=== PATIENT | female | born 1975 | race Caucasian/White ===

== ENCOUNTER 2020-06-09 08:11 | Outpatient (REF) | payer OTHER, SELFPAY ==
--- NOTE | 2020-06-09 08:16 | MM_ITS ---
EXAMINATION: MM SCREENING DIGITAL BREAST TOMOSYNTHESIS, BILATERAL CLINICAL INFORMATION: Screening. Asymptomatic. Family history breast cancer, sister age 43 and aunt age 77. The lifetime risk of based on the Tyrer-Cuzick Model is 32 %. COMPARISON: Mammography: 06/06/2019, 05/07/2018, 05/04/2017, 07/08/2015 TECHNIQUE: Digital breast tomosynthesis is performed in both the craniocaudal and mediolateral oblique views along with computer-aided detection (CAD). Synthesized 2D images are generated from the tomosynthesis. FINDINGS: The breasts are heterogeneously dense, which may obscure small masses (ACR BI-RADS breast composition Category c). Parenchymal pattern is similar to prior studies. There is no developing density or interval mass or architectural abnormality. There are scattered punctate calcifications in each breast. A few new calcifications are noted medial left breast 8 cm from nipple without grouping on the MLO view. Patient will be recalled in order to fully characterize. There are 2 biopsy clip markers again noted retroareolar left breast. The axilla and skin contours are unremarkable. MM/MM tomosynthesis screening BI IMPRESSION: 1. Left: Punctate calcifications medial left breast. No grouping appreciated on MLO view. 2. Right: No mammographic evidence of malignancy. ASSESSMENT: BI-RADS 0: Incomplete - Need Additional Imaging Evaluation RECOMMENDATION: 1. Additional views of the left breast (magnification CC, magnification ML-central and lower). 2. Radiology department staff will contact the patient for additional imaging. 3. The lifetime risk of breast cancer based on the Tyrer-Cuzick Model is 32%. Additional annual adjunct screening with breast MRI may be of benefit in women with a risk score of 20% or greater. This patient's information was entered into a reminder system with a target due date for their next mammogram.
== END 2020-06-09 08:12 | disposition home or self-care (01) ==
LOC: HO.MAMMO 08:11
PROVIDERS: PCP Internal Medicine; Visit Provider Internal Medicine
DX: Z12.31 Encounter for screening mammogram for malignant neoplasm of breast (principal)
CPT/HCPCS: 77063; 77067

== ENCOUNTER 2020-07-09 08:25 | Outpatient (REF) | payer OTHER, SELFPAY ==
--- NOTE | 2020-07-09 08:28 | MM_ITS ---
EXAMINATION: MM DIAGNOSTIC DIGITAL, LEFT CLINICAL INFORMATION: Left breast calcifications medially. COMPARISON: Mammography: 06/09/2020 and studies dating back to 04/08/2011. TECHNIQUE: Digital mammography performed in Spot compression craniocaudal and 90 degree mediolateral views. FINDINGS: The breasts are heterogeneously dense, which may obscure small masses (ACR BI-RADS breast composition Category c). The grouping of calcifications is difficult to see on craniocaudal view with multiple scattered calcifications being seen. On 90 degree mediolateral view, there are 2 groupings of calcifications approximately 8 cm from the nipple, both inferiorly. No branching forms identified. The calcifications are similar to other calcifications seen within the breast. Recommend 6 month follow up magnification views of the left breast. Results are provided to the patient at time of visit by the technologist. MM/MM added views LT IMPRESSION: Probably benign calcifications of the left breast. ASSESSMENT: BI-RADS 3: Probably Benign. RECOMMENDATION: Diagnostic mammography in 6 months. This patient's information was entered into a reminder system with a target due date for their next mammogram.
== END 2020-07-09 08:26 | disposition home or self-care (01) ==
LOC: HO.MAMMO 08:25
PROVIDERS: PCP Internal Medicine; Visit Provider Internal Medicine
DX: R92.1 Mammographic calcification found on diagnostic imaging of breast (principal)
CPT/HCPCS: 77065

== ENCOUNTER 2021-01-04 10:19 | Outpatient (REF) | payer OTHER, SELFPAY ==
--- NOTE | ~2021-01-04 | MM_ITS ---
EXAMINATION: MM DIAGNOSTIC DIGITAL BREAST TOMOSYNTHESIS, LEFT CLINICAL INFORMATION: Short interval six-month follow-up probable benign calcifications lower inner quadrant left breast. Family history breast cancer, sister age 43; paternal aunt age 77. The lifetime risk of breast cancer based on the Tyrer-Cuzick Model is 32%. Benign left MR guided biopsy 01/08/2018 (benign breast tissue with sclerosing adenosis, microcalcifications, stromal fibrosis, macrocysts, columnar cell change, and apocrine metaplasia). Benign left MR guided biopsy 08/05/2006 (benign breast tissue with dense fibrous stroma). COMPARISON: Mammography: 07/09/2020, 06/09/2020 (BI-RADS 0), 06/06/2019 TECHNIQUE: Digital breast tomosynthesis is performed in both the craniocaudal and mediolateral oblique views along with computer-aided detection (CAD). Synthesized 2D images are generated from the tomosynthesis. FINDINGS: The breasts are heterogeneously dense, which may obscure small masses (ACR BI-RADS breast composition Category c). Parenchymal pattern is similar to prior exams. There is no developing density or interval mass or architectural abnormality. There are scattered calcifications anterior lower inner left breast, some show layering on the ML view. There are no increasing calcifications or pleomorphic types or ductal distribution from prior diagnostic exam. Left breast calcifications will be reassessed again in 6 months at time of annual bilateral mammography. Results are provided to the patient at time of visit by the technologist. MM/MM tomosynthesis diagnostic BI IMPRESSION: There are no significant changes from prior study. ASSESSMENT: BI-RADS 3: Probably Benign RECOMMENDATION: 1. Diagnostic mammography at time of annual bilateral exam, due in 6 months. 2. The lifetime risk of breast cancer based on the Tyrer-Cuzick Model is 32%. Additional annual adjunct screening with breast MRI may be of benefit in women with a risk score of 20% or greater. This patient's information was entered into a reminder system with a target due date for their next mammogram.
== END 2021-01-04 10:20 | disposition home or self-care (01) ==
LOC: HO.MAMMO 10:19
PROVIDERS: Visit Provider Internal Medicine
DX: R92.1 Mammographic calcification found on diagnostic imaging of breast (principal)
CPT/HCPCS: 77062; 77066

== ENCOUNTER 2021-02-26 06:37 | Outpatient (REF) | payer OTHER, SELFPAY ==
[2021-02-26 11:31] LABS: MANUAL DIFF FLAG NO
[2021-02-26 11:40] LABS: Basophils Percent Auto 0.5 % (0-2); Eosinophils Absolute Auto 0.1 X10*3/uL (0.0-0.4); Eosinophils Percent Auto 0.6 % (0-4); Hematocrit 42.2 % (37-47); Hemoglobin 14.1 g/dl (12.0-16.0); Imm Gran Abs Auto 0.02 X10*3/uL (0.00-0.03); Imm Gran Pct Auto 0.3 % (0.0-0.4); Lymphocytes Absolute Auto 2.1 X10*3/uL (1.2-4.9); Lymphocytes Percent Auto 27.1 % (20-40); Mean Corpuscular HGB Conc 33.4 g/dl (31.0-35.0); Mean Corpuscular Hemoglobin 33.8 pg (27.0-33.0); Mean Corpuscular Volume 101.2 fL (80-98); Mean Platelet Volume 10.2 fL (9.4-12.3); Monocytes Absolute Auto 0.7 X10*3/uL (0.1-1.2); Neutrophils Percent Auto 62.5 % (45-73); Platelet Count 259 X10*3/uL (160-400); Red Blood Count 4.17 X10*6/uL (4.20-5.50); Red Cell Distribution Width 13.5 % (11.0-16.0); White Blood Count 7.9 X10*3/uL (4.8-10.8)
[2021-02-26 11:51] LABS: Estimated Average Glucose 97 mg/dL
[2021-02-26 12:02] LABS: Alanine Aminotransferase 12 U/L (0-31); Albumin Level 4.2 g/dL (3.5-5.0); Alkaline Phosphatase 57 U/L (39-117); Anion Gap 14 (12-20); Aspartate Amino Transferase 14 U/L (5-31); Bilirubin Total 0.9 mg/dL (0.0-1.0); Blood Urea Nitrogen 10 mg/dL (9-16); Calcium 9.1 mg/dL (8.4-10.2); Carbon Dioxide 20 mmol/L (22-29); Chloride 106 mmol/L (96-108); Cholesterol 272 mg/dL; Estimated Glomerular Filt Rate > 60; Glucose Random 96 mg/dL (60-115); HDL Cholesterol 62 mg/dL; LDL Cholesterol Calculated 171 mg/dl; Sodium 136 mmol/L (135-145); Triglycerides 195 mg/dL
[2021-02-26 12:13] LABS: Free T4 (Free Thyroxine) 0.92 ng/dL (0.71-1.85); Thyroid Stimulating Hormone 3.07 uIU/mL (0.32-4.0); Vitamin D 25-OH Total 23.1 ng/mL (>30)
[2021-02-27 14:53] LABS: Folate > 20.0 ng/mL (> or = 4.0); Vitamin B12 762 pg/mL (200-900)
== END 2021-02-26 06:38 | disposition home or self-care (01) ==
LOC: HO.HMGCLDS 06:37
PROVIDERS: PCP Internal Medicine; Visit Provider Internal Medicine
DX: E78.00 Pure hypercholesterolemia, unspecified (principal); R73.02 Impaired glucose tolerance (oral)
CPT/HCPCS: 36415; 80053; 80061; 82306; 82607; 82746; 83036; 84439; 84443; 85025

== ENCOUNTER → 2021-03-10 09:42 | Outpatient (BNVA) | payer OTHER, SELFPAY | PROVIDERS: Visit Provider Advanced Practice Midwife ==

== ENCOUNTER → 2021-04-01 08:21 | Outpatient (BNVA) | payer OTHER, SELFPAY | PROVIDERS: PCP Internal Medicine; Visit Provider Obstetrics & Gynecology ==

== ENCOUNTER → 2021-04-22 11:07 | Outpatient (BNVA) | payer OTHER, SELFPAY | PROVIDERS: PCP Internal Medicine; Referring Provider Internal Medicine; Visit Provider Surgery ==

== ENCOUNTER 2021-04-28 13:21 | Outpatient (REF) | payer OTHER, SELFPAY ==
--- NOTE | ~2021-04-28 | MR_ITS ---
EXAMINATION: MR BREAST WITHOUT AND WITH CONTRAST, BILATERAL CLINICAL INFORMATION: High-risk screening. COMPARISON: MRI 12/21/2017, 04/20/2017 TECHNIQUE: Imaging was performed with a dedicated breast coil. Prior to the administration of contrast, bilateral axial T1 and bilateral axial T2 weighted sequences were obtained. After the uneventful administration of?6.5 mL of Gadavist, dynamic contrast-enhanced VIBRANT series through the breasts in the axial plane were performed. Subtracted images were performed and reviewed. A delayed sagittal sequence through both breasts was acquired. Additionally, CAD post-processing, including maximum intensity projections, 3-D reconstructions and kinetic analysis, were performed an independent workstation and reviewed by the interpreting radiologist is a portion of this exam. FINDINGS: There is mild to moderate background parenchymal enhancement. LEFT BREAST: There is a new area of linear nonmasslike enhancement in the 8:00 position of the left breast which measures 0.8 cm anterior to posterior (image 91, series 100).. There is a probably benign grouping of calcifications anterior to this area on review of the recent mammogram. No definite mammographic correlate. No other suspicious nonmasslike or masslike enhancement. Review of the T2 weighted images demonstrates mild fibrocystic changes without dilated ducts. Review of kinetic images reveals no additional findings. RIGHT BREAST: No suspicious masslike or non-masslike enhancement. No abnormal skin thickening or nipple retraction. No abnormal architectural distortion. Review of the T2 weighted images demonstrates mild fibrocystic changes without dilated ducts. Review of kinetic images reveals no additional findings. There is no suspicious internal mammary chain or axillary adenopathy. Limited views of the chest and abdomen are unremarkable. MR/MR breast BI wo/w con IMPRESSION: Indeterminant nonmasslike enhancement, left breast, 8:00. No MR specific evidence of right breast malignancy. ASSESSMENT: LEFT BREAST: BI-RADS 4 - Suspicious abnormality - Biopsy should be considered. RIGHT BREAST: BI-RADS 1-Negative RECOMMENDATIONS: MRI guided biopsy, left breast, 8:00.
== END 2021-04-28 13:22 | disposition home or self-care (01) ==
LOC: HO.MRI 13:21
PROVIDERS: PCP Internal Medicine; Visit Provider Obstetrics & Gynecology
DX: Z91.89 Other specified personal risk factors, not elsewhere classified (principal)
CPT/HCPCS: 77049; A9585

== ENCOUNTER → 2021-05-03 10:26 | Outpatient (BNVA) | payer OTHER, SELFPAY | PROVIDERS: Visit Provider Obstetrics & Gynecology ==

== ENCOUNTER 2021-05-17 07:25 | Outpatient (REF) | payer OTHER, SELFPAY ==
--- NOTE | ~2021-05-17 | MM_ITS ---
EXAMINATION: MR GUIDED VACUUM-ASSISTED CORE BIOPSY BREAST, LEFT MM DIGITAL MAMMOGRAPHY POST BIOPSY, LEFT CLINICAL INFORMATION: Linear non-mass enhancement 8:00 posterior left breast, 0.8 cm length. Tissue sampling recommended. Prior history benign left breast stereotactic biopsy anterior breast 08/05/2016 and 01/08/2018. COMPARISON: Mammography 04/28/2021, digital breast tomosynthesis 01/04/2021. TECHNIQUE/PROCEDURE: Informed consent was obtained from the patient after discussion of the benefits, risks, and alternatives to biopsy today. Patient appeared to understand. Gave opportunity for questions. Patient signed consent form. Biopsy is performed under MRI guidance using breast surface coil. Imaging is performed without and with use of 6.5 mL Gadavist gadolinium contrast. Yobongo introducer localization system is used with grid. LESION: Short non mass enhancement posterior medial left breast. LOCAL ANESTHESIA: 8 mL 1% lidocaine; 10 mL 1% lidocaine with epinephrine. NEEDLE: Semantify 9-gauge vacuum assisted core biopsy device. APPROACH: Lateral medial. Lesion location and MR grid geometry did not allow for medial approach. CORES: 12. CLIP: TriMark spool/barbell shape. POSTPROCEDURE UNILATERAL DIGITAL MAMMOGRAM: Mammography is performed using digital mammography in CC and ML views. The breasts are heterogeneously dense, which may obscure small masses (ACR BI-RADS breast composition Category c). The clip marker is in position. There may be some lateral accordion effect from the biopsy site. No gross hematoma. The patient tolerated the procedure well. No immediate complications. Home instructions reviewed with the patient. Final pathology results are pending. MM/MM diagnostic mammo unilat LT IMPRESSION: 1. Status post MRI guided vacuum-assisted core biopsy left breast. 2. Final pathology results pending. An addendum report will be issued.
== END 2021-05-17 07:26 | disposition home or self-care (01) ==
LOC: HO.MRI 07:25
PROVIDERS: Visit Provider Surgery
DX: R92.8 Other abnormal and inconclusive findings on diagnostic imaging of breast (principal)
CPT/HCPCS: 19085; 77065; 88305; A4648; A9585

== ENCOUNTER 2021-07-07 12:49 | Outpatient (REF) | payer OTHER, SELFPAY ==
--- NOTE | ~2021-07-07 | MM_ITS ---
EXAMINATION: MM DIAGNOSTIC DIGITAL BREAST TOMOSYNTHESIS, BILATERAL CLINICAL INFORMATION: Due for yearly. Probable benign calcifications lower inner left breast. Family history breast cancer, sister age 43. Prior history benign left breast biopsy x3, most recent MR guided 05/17/2021 (benign breast tissue with patchy apocrine metaplasia and cystic change; a few microcalcifications; prominent adipose tissue). The lifetime risk of breast cancer based on the Tyrer-Cuzick Model is 27%. COMPARISON: Mammography: 05/17/2021, 01/04/2021, 07/09/2020, 06/09/2020 (BI-RADS 0), 06/06/2019, 05/07/2018 TECHNIQUE: Digital breast tomosynthesis is performed in both the craniocaudal and mediolateral oblique views along with computer-aided detection (CAD). Synthesized 2D images are generated from the tomosynthesis. Additional magnification left CC and left magnification LM views are provided. FINDINGS: The breasts are heterogeneously dense, which may obscure small masses (ACR BI-RADS breast composition Category c). Parenchymal pattern is similar to prior studies. There is no interval developing density, significant mass, architectural abnormality, or abnormal calcifications. Scattered punctate calcifications are again noted in each breast, some are layering on the MLO view. There are 3 biopsy clip markers left breast, most recent from MR biopsy lower inner quadrant. The most recent biopsy is close to the area of calcifications for follow-up.. The calcifications appear decreased. No interval suspicious change. Left breast will be reassessed with magnification views at next bilateral annual mammography, due in 12 months. Results are provided to the patient at time of visit by the technologist. MM/MM tomosynthesis diagnostic BI IMPRESSION: 1. No mammographic evidence of malignancy. 2. Left breast calcifications for follow-up appear decreased, likely related to the recent benign MR biopsy. No suspicious changes. ASSESSMENT: BI-RADS 3: Probably Benign RECOMMENDATION: Diagnostic mammography at time of next annual exam to include magnification views left breast, due in 12 months. This patient's information was entered into a reminder system with a target due date for their next mammogram.
== END 2021-07-07 12:50 | disposition home or self-care (01) ==
LOC: HO.MAMMO 12:49
PROVIDERS: Visit Provider Internal Medicine
DX: R92.1 Mammographic calcification found on diagnostic imaging of breast (principal)
CPT/HCPCS: 77062; 77066

== ENCOUNTER 2021-08-04 13:40 | Outpatient (REF) | payer OTHER, SELFPAY ==
--- NOTE | ~2021-08-04 | XR_ITS ---
EXAMINATION: XR CHEST CLINICAL INFORMATION: Acute bronchitis. COMPARISON: Previous chest x-ray September 2013. TECHNIQUE: 2 views of the chest were obtained. FINDINGS: No significant abnormality is noted involving the heart, lungs, mediastinum, bony thorax or soft tissues. XR/XR chest 2V IMPRESSION: Unremarkable examination.
== END 2021-08-04 13:41 | disposition home or self-care (01) ==
LOC: HO.HMGCX 13:40
PROVIDERS: Visit Provider Physician Assistant
DX: J20.9 Acute bronchitis, unspecified (principal)
CPT/HCPCS: 71046

== ENCOUNTER → 2022-04-18 09:09 | Outpatient (REF) | payer OTHER, SELFPAY ==
--- NOTE | 2022-04-18 09:16 | ECG_ITS ---
Test Reason : syncope and collapse Blood Pressure : / mmHG Vent. Rate : 055 BPM Atrial Rate : 055 BPM P-R Int : 136 ms QRS Dur : 086 ms QT Int : 432 ms P-R-T Axes : 069 075 062 degrees QTc Int : 413 ms Sinus bradycardia Otherwise normal ECG No previous ECGs available Referred By: Nita Reed Electronically Signed By:ABHINAV CR
[2022-04-18 09:39] LABS: MANUAL DIFF FLAG NO
[2022-04-18 10:20] LABS: Appearance Urine Clear; Color Urine Yellow; Glucose Urine UA Negative (Negative); Leukocyte Esterase Urine Small (1+) (Negative); Nitrite Urine Negative (Negative); PH 6.5 (5.0-9.0); Specific Gravity - Urine 1.015 (1.005-1.025); UMIC TRIGGER UA YES; Urine Blood Negative (Negative); Urine Ketones Negative (Negative); Urine Protein Negative (Neg-Trace)
[2022-04-18 10:22] LABS: Basophils Percent Auto 0.2 % (0-2); Eosinophils Absolute Auto 0.1 X10*3/uL (0.0-0.4); Eosinophils Percent Auto 0.7 % (0-4); Hematocrit 40.1 % (37.0-47.0); Hemoglobin 13.6 g/dl (12.0-16.0); Imm Gran Abs Auto 0.02 X10*3/uL (0.00-0.03); Imm Gran Pct Auto 0.2 % (0.0-0.4); Lymphocytes Percent Auto 24.2 % (20-40); Mean Corpuscular HGB Conc 33.9 g/dl (31.0-35.0); Mean Corpuscular Volume 100.3 fL (80.0-98.0); Mean Platelet Volume 9.7 fL (9.4-12.3); Monocytes Absolute Auto 0.5 X10*3/uL (0.1-1.2); Monocytes Percent Auto 6.5 % (2-11); Neutrophils Absolute Auto 5.5 x10*3/uL (2.0-8.3); Neutrophils Percent Auto 68.2 % (45-73); Platelet Count 269 X10*3/uL (160-400); Red Cell Distribution Width 12.2 % (11.0-16.0); White Blood Count 8.1 X10*3/uL (4.8-10.8)
[2022-04-18 10:34] LABS: Estimated Average Glucose 97 mg/dL
[2022-04-18 10:36] LABS: Bacteria Urine 3+ (None Seen); Hyaline Casts Urine 0-2 /LPF (0-2); WBC Urine 0-5 /HPF (0-5)
[2022-04-18 10:50] LABS: Alanine Aminotransferase 13 U/L (0-31); Albumin Level 4.3 g/dL (3.5-5.0); Alkaline Phosphatase 59 U/L (39-117); Anion Gap 17 (12-20); Aspartate Amino Transferase 17 U/L (5-31); Bilirubin Total 0.5 mg/dL (0.0-1.0); Blood Urea Nitrogen 9 mg/dL (9-16); Calcium 9.4 mg/dL (8.4-10.2); Carbon Dioxide 22 mmol/L (22-29); Chloride 102 mmol/L (96-108); Cholesterol 269 mg/dL; Estimated Glomerular Filt Rate > 60; Glucose Random 96 mg/dL (60-115); HDL Cholesterol 59 mg/dL; LDL Cholesterol Calculated 159 mg/dl; Potassium 4.5 mmol/L (3.3-5.1); Sodium 136 mmol/L (135-145); Total Protein 7.3 g/dL (6.5-8.0); Triglycerides 256 mg/dL
[2022-04-18 10:52] LABS: D Dimer High Sensitivity < 150 NG/ML
[2022-04-18 11:02] LABS: Erythrocyte Sedimentation Rate 8 MM/HR (0-20)
[2022-04-18 11:15] LABS: Free T4 (Free Thyroxine) 0.97 ng/dL (0.71-1.85); Thyroid Stimulating Hormone 1.98 uIU/mL (0.32-4.0)
[2022-04-18 11:38] LABS: Folate > 20.0 ng/mL (> or = 4.0); Vitamin B12 801 pg/mL (200-900)
== END ==
LOC: HO.CARD 09:09
PROVIDERS: PCP Internal Medicine; Visit Provider Internal Medicine
DX: R55 Syncope and collapse (principal); E78.00 Pure hypercholesterolemia, unspecified; R73.02 Impaired glucose tolerance (oral)
CPT/HCPCS: 36415; 80053; 80061; 81001; 82607; 82746; 83036; 84439; 84443; 85025; 85379; 85652; 93005

== ENCOUNTER 2022-06-28 14:00 | Outpatient (REF) | payer OTHER, SELFPAY ==
[2022-06-28 16:30] LABS: Influenza A PCR NEGATIVE (Negative); Influenza B PCR NEGATIVE (Negative); Resp Syncy Virus RNA Qual PCR NEGATIVE (Negative); SARS COV2 PCR INHOUSE NEGATIVE (Negative)
== END 2022-06-28 14:01 | disposition home or self-care (01) ==
LOC: HO.LNP 14:00
PROVIDERS: Visit Provider Physician Assistant
DX: Z20.822 Contact with and (suspected) exposure to COVID-19 (principal); B34.9 Viral infection, unspecified
CPT/HCPCS: 0241U

== ENCOUNTER 2022-07-08 12:12 | Outpatient (REF) | payer OTHER, SELFPAY | END 2022-07-08 12:13 | disposition home or self-care (01) | LOC: HO.MAMMO 12:12 | PROVIDERS: PCP Internal Medicine; Visit Provider Internal Medicine | DX: R92.1 Mammographic calcification found on diagnostic imaging of breast (principal) | CPT/HCPCS: 77062; 77066 ==

== ENCOUNTER 2022-07-20 13:08 | Outpatient (REF) | payer OTHER, SELFPAY ==
[2022-07-23 17:53] LABS: HPV 16 RNA NOT DETECTED (NOT DETECTED); HPV mRNA E6/E7 rflx Detected (Not Detected)
== END 2022-07-20 13:09 | disposition home or self-care (01) ==
LOC: HO.LNP 13:08
PROVIDERS: PCP Internal Medicine; Visit Provider Advanced Practice Midwife
DX: Z01.419 Encounter for gynecological examination (general) (routine) without abnormal findings (principal); N87.0 Mild cervical dysplasia; Z97.5 Presence of (intrauterine) contraceptive device; Z12.39 Encounter for other screening for malignant neoplasm of breast; Z79.899 Other long term (current) drug therapy
CPT/HCPCS: 87624; 87625; 88142

== ENCOUNTER 2022-08-19 09:45 | Outpatient (REF) | payer OTHER, SELFPAY ==
--- NOTE | ~2022-08-19 | XR_ITS ---
EXAMINATION: XR CERVICAL SPINE CLINICAL INFORMATION: Neuralgia and neuritis. COMPARISON: None TECHNIQUE: 3 views of the cervical spine were obtained. FINDINGS: There are no prevertebral soft tissue or bony abnormalities demonstrated. No compression fractures or subluxations are identified. Alignment is maintained at the atlanto-axial articulation. There is mild to moderate focal degenerative disc disease at C5-C6 with loss of intervertebral disc height and endplate and uncovertebral osteophytes. There is reversal of the normal cervical lordosis. The prevertebral soft tissues are normal. XR/XR cervical spine 2V IMPRESSION: Mild to moderate focal degenerative disc disease at C5-C6. Reversal of the normal cervical lordosis. No acute osseous findings.
== END 2022-08-19 09:46 | disposition home or self-care (01) ==
LOC: HO.XRAY 09:45
PROVIDERS: PCP Internal Medicine; Visit Provider Internal Medicine
DX: M79.2 Neuralgia and neuritis, unspecified (principal)
CPT/HCPCS: 72040

== ENCOUNTER 2022-11-09 12:53 | Outpatient (REF) | payer OTHER, SELFPAY ==
--- NOTE | 2022-11-09 08:45 | EMG_ITS ---
Please see scanned EMG / Nerve Conduction Report. MTDD
== END 2022-11-09 12:54 | disposition home or self-care (01) ==
LOC: HO.NEURO 12:53
PROVIDERS: PCP Internal Medicine; Visit Provider Internal Medicine
DX: R20.0 Anesthesia of skin (principal)
CPT/HCPCS: 95885; 95910

== ENCOUNTER 2022-12-15 09:23 | Outpatient (REF) | payer OTHER, SELFPAY ==
[2022-12-15 11:11] LABS: Appearance Urine Cloudy; Color Urine Yellow; Glucose Urine UA Negative (Negative); Leukocyte Esterase Urine Moderate (2+) (Negative); Nitrite Urine Negative (Negative); PH 6.5 (5.0-9.0); UMIC TRIGGER UA YES; Urine Blood Negative (Negative); Urine Ketones Negative (Negative); Urine Protein 30 (1+) mg/dL (Neg-Trace)
[2022-12-15 11:29] LABS: Bacteria Urine 4+ (None Seen); Hyaline Casts Urine 0-2 /LPF (0-2); WBC Urine >50 /HPF (0-5)
== END 2022-12-15 09:24 | disposition home or self-care (01) ==
LOC: HO.LAB 09:23
PROVIDERS: PCP Internal Medicine; Visit Provider Internal Medicine
DX: R30.0 Dysuria (principal)
CPT/HCPCS: 81001

== ENCOUNTER 2023-01-05 09:13 | Outpatient (REF) | payer OTHER, SELFPAY ==
--- NOTE | ~2023-01-05 | MM_ITS ---
EXAMINATION: MM DIAGNOSTIC DIGITAL MAMMOGRAPHY, RIGHT CLINICAL INFORMATION: Short interval six-month follow-up probable benign calcifications posterior central inner right breast initially noted at diagnostic mammography 07/08/2022. TC score 26%. COMPARISON: Multiple prior mammography exams including most recent: 07/08/2022 (BI-RADS 3 for right breast) TECHNIQUE: Digital mammography is performed in craniocaudal and mediolateral oblique views along with computer-aided detection (CAD). Additional views are obtained: Right CC, magnification right CC x3, magnification right ML x2. FINDINGS: The breasts are heterogeneously dense, which may obscure small masses (ACR BI-RADS breast composition Category c). Parenchymal pattern is similar to prior exams and there is no developing density or interval mass or architectural abnormality. There are scattered calcifications again seen in the right breast. The calcification group for follow-up right posterior central inner are stable from prior diagnostic mammography. The calcifications will be reassessed again in 6 months at time of annual bilateral exam. Results are provided to the patient at time of visit by the technologist. MM/MM tomosynthesis diagnostic RT IMPRESSION: -Right breast calcifications for follow-up are similar to prior diagnostic exam. ASSESSMENT: BI-RADS 3: Probably Benign RECOMMENDATION: Diagnostic mammography at time of annual bilateral mammography, due in 6 months. This patient's information was entered into a reminder system with a target due date for their next mammogram.
== END 2023-01-05 09:14 | disposition home or self-care (01) ==
LOC: HO.MAMMO 09:13
PROVIDERS: PCP Internal Medicine; Visit Provider Internal Medicine
DX: R92.1 Mammographic calcification found on diagnostic imaging of breast (principal)
CPT/HCPCS: 77061; 77062; 77065

== ENCOUNTER 2023-07-12 10:49 | Outpatient (REF) | payer OTHER, SELFPAY ==
--- NOTE | ~2023-07-12 | MM_ITS ---
EXAMINATION: MM DIAGNOSTIC DIGITAL BREAST TOMOSYNTHESIS, BILATERAL CLINICAL INFORMATION: 6 month follow-up right breast calcifications slightly upper slightly medial right breast, middle one third. 2 abutting groups. BI-RADS 0 07/07/2021 (stable over one year). Patient also has history of 3 benign left MR guided breast biopsies. TC score 26%. COMPARISON: Multiple prior mammography exams including most recent: 01/05/2023, 07/08/2022 (BI-RADS 3 for right breast), TECHNIQUE: Digital breast tomosynthesis is performed in both the craniocaudal and mediolateral oblique views along with computer-aided detection (CAD). Synthesized 2D images are generated from the tomosynthesis. In addition, 2-D spot magnification right ML and right CC views were also performed. Also, 2 extra bilateral 3-D MLO views were provided for visualization of the inframammary folds. A full-field right ML view was also obtained. FINDINGS: The breasts are heterogeneously dense, which may obscure small masses (ACR BI-RADS breast composition Category c). Spot magnification views of the right breast slightly upper slightly inner calcifications, 2 distinct groups, middle one third, demonstrate no significant change in number, shape, or overall appearance of the 2 abutting groups. These is been stable over one year and are probably benign. Six-month interval follow-up right breast magnification views recommended to ensure stability. There are 3 benign post MR biopsy markers in the left breast. There are no suspicious masses, developing suspicious grouped calcifications, or areas of architectural distortion in either breast. The heterogeneously dense and somewhat nodular parenchymal pattern is stable from prior exams. There are no skin or axillary changes. MM/MM tomosynthesis diagnostic BI IMPRESSION: 2 discrete groups of immediately abutting calcifications in the right breast slightly upper slightly inner middle one third are completely unchanged and have remained stable over one year. Six-month interval follow-up standard magnification views right breast recommended to ensure 1.5 years of stability. There are no new suspicious findings in the right breast. There are no suspicious findings in the left breast. ASSESSMENT: BI-RADS BI-RADS 3 - Probably benign finding(s) - 6 month follow-up suggested RECOMMENDATION: 6 Month F/U Results were provided to the patient at time of visit by the technologist. This patient's information was entered into a reminder system with a target due date for their next mammogram.
== END 2023-07-12 10:50 | disposition home or self-care (01) ==
LOC: HO.MAMMO 10:49
PROVIDERS: PCP Internal Medicine; Visit Provider Internal Medicine
DX: R92.1 Mammographic calcification found on diagnostic imaging of breast (principal)
CPT/HCPCS: 77062; 77066

== ENCOUNTER → 2023-07-12 11:00 | Outpatient (BNV) | payer OTHER, SELFPAY | PROVIDERS: PCP Internal Medicine; Visit Provider Radiology Diagnostic Radiology | DX: R92.1 Mammographic calcification found on diagnostic imaging of breast (principal) | CPT/HCPCS: 77062; 77066 ==

== ENCOUNTER 2023-08-22 09:17 | Outpatient (REF) | payer OTHER, SELFPAY ==
[2023-08-28 20:09] LABS: HPV mRNA E6/E7 rflx Not Detected (Not Detected)
== END 2023-08-22 09:18 | disposition home or self-care (01) ==
LOC: HO.LNP 09:17
PROVIDERS: PCP Internal Medicine; Visit Provider Obstetrics & Gynecology
DX: Z01.419 Encounter for gynecological examination (general) (routine) without abnormal findings (principal); Z11.51 Encounter for screening for human papillomavirus (HPV); N95.0 Postmenopausal bleeding
CPT/HCPCS: 87624; 88142

== ENCOUNTER 2023-08-22 09:17 | Outpatient (AMB) | payer OTHER, SELFPAY ==
--- NOTE | 2023-08-22 09:29 | A.OFFVIS_ITS ---
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 The patient had amenorrhea for 6 months followed by 1 episode of bleeding associated with hot flashes Last Pap/HPV was negative/HPV positive in 11/06 Last Mammogram was BI-RADS 3 in 07/08, the recommendation was to repeat in 6 months The patient had Cologuard was negative and the recommendation was for her to repeat in 3 years [facility] Medical History Well woman exam with routine gynecological exam Breast cancer screening Colon cancer screening Annual physical exam Acute bronchitis At high risk for breast cancer Well woman exam Arm numbness left Shingles Rash and nonspecific skin eruption Atypical squamous cells cannot exclude high grade squamous intraepithelial lesion on cytologic smear of cervix (ASC-H) Tobacco abuse Insomnia Hypercholesterolemia Migraine GERD (gastroesophageal reflux disease) Surgical History ELIF I (cervical intraepithelial neoplasia I) History of breast biopsy Family History Father Heart disease Bone cancer Diabetes Esophageal cancer Mother No problems noted. Maternal Grandmother Colon cancer Paternal Aunt Breast cancer, Onset Age: 75 Sister Breast cancer, Onset Age: 42 Social History Housing: House Alcohol intake: current Alcohol intake frequency: a few times a month Alcohol type: beer, wine and hard liquor Patient Tobacco Use Status: Current everyday Tobacco user Tobacco use type: Cigarette Cigarettes Per Day: 5 Years Smoked: started 17 years old e-Cigarette/Vaping Use: Never Used Second Hand Smoke Exposure: No service: No Current occupational status: employed Cognitive needs: No Hearing needs: No Vision needs: No Female Reproductive History Menstrual Age of Menarche: 13 Duration of menses: 3-5 days Date of last menstrual period: 06/17/23 control method: copper IUCD Total pregnancies: 1 Ab induced: 1 Date of last pap smear: 07/20/22 (+HPV) History of abnormal pap smear: Yes Date of Mammogram: 07/12/23 Review of Systems Const All systems reviewed & are unremarkable except as noted in HPI and below Card Reports as per HPI Resp Reports as per HPI GI Reports as per HPI and Reports no additional complaints Reports as per HPI Physical Exam Vital Signs: Last Vital Signs BP 124/80 08/22/23 09:31 BMI result Body Mass Index 24.4 Const General: cooperative, healthy appearing and comfortable Chest Chest palpation & inspection: normal inspection of the chest and normal palpation of entire chest wall Breast/axilla inspection: normal inspection of the breasts and normal inspection of the axillae Breast/axilla palpation: normal palpation of the breasts, normal palpation of the axillae and no axillary lymphadenopathy Resp Effort & Inspection: normal respiratory effort Auscultation: clear to auscultation bilaterally Percussion: percussion normal Cardio Palpation: normal PMI Rate: regular rate Rhythm: regular rhythm Heart sounds: no murmurs and no rubs Peripheral pulses: Peripheral pulses 2+ throughout GI Inspection: Yes normal to inspection Palpation (GI): Soft to palpation, nontender, no guarding, not rigid and No hepatosplenomegaly present Percussion: Yes normal to percussion Auscultation: normal bowel sounds Rectal Exam - Female: deferred General: Yes bladder normal to palpation External Female Exam: No lesion Speculum Exam - Vagina: normal appearance of the vagina, normal palpation, normal vaginal discharge and not erythematous Speculum Exam - Cervix: normal appearance of the cervix and normal palpation Bimanual exam- vagina & uterus: normal bimanual exam, normal palpation, uterine size normal, bladder normal to palpation, consistency normal and normal palpation Bimanual Exam- Adnexa, other: normal adnexae, no masses and no tenderness Assessment & Plan Assessment & Plan (1) Well woman exam: Comment: Pap negative/HPV positive in 11/06 Code(s): Z01.419 - Encounter for gynecological examination (general) (routine) without abnormal findings Plan: Cotesting done. Instructions given to patient to schedule next Mammogram in 01/06. Counseled the patient about the recommended dietary allowance of 1000 mg of Calcium & 600 IU of vitamin D. The patient was instructed to perform monthly self-breast exams and to schedule an annual exam in a year; All questions answered and the patient verbalized understanding. Instructed the patient to schedule annual exam in a year (2) Postmenopausal bleeding: Code(s): N95.0 - Postmenopausal bleeding Plan: Discussed with the patient the differential diagnosis of post menopausal bleeding with normal pelvic exam including but not limited to, endometrial hyperplasia, cancer, polyps and other causes; co testing done, recommended ultrasound to measure the endometrial stripe; discussed with the patient that if the endometrial thickness is 4 mm or less the negative predictive value of endometrial pathology is 99%, otherwise If endometrial thickness is more than 4 mm will proceed with endometrial sampling versus hysteroscopy D&C polypectomy depending on the ultrasound findings. Instructed the patient to schedule an ultrasound follow-up appointment in 2 weeks. All questions answered, the patient verbalized understanding and agreed with the plan. Orders: Orders US pelvic and transvaginal Today N95.0 - Postmenopausal bleeding Coding Level of Care Code Est Pt Prev Care 40-64y(25296) Diagnoses Well woman exam Z01.419 Postmenopausal bleeding N95.0
[2023-08-22 09:31] VITALS: BP 124/80; BMI 24.4
== END 2023-08-22 09:51 | disposition home or self-care (01) ==
PROVIDERS: PCP Internal Medicine; Visit Provider Obstetrics & Gynecology
DX: Z01.419 Encounter for gynecological examination (general) (routine) without abnormal findings (principal); N95.0 Postmenopausal bleeding
CPT/HCPCS: 99396

== ENCOUNTER 2023-08-29 12:36 | Outpatient (REF) | payer OTHER, SELFPAY ==
--- NOTE | ~2023-08-29 | US_ITS ---
EXAMINATION: US PELVIS CLINICAL INFORMATION: Postmenopausal bleeding. Last menstrual period June 17, 2023. IUD. COMPARISON: None available. TECHNIQUE: Ultrasound of the pelvis is performed using both transabdominal and transvaginal transducers along with Doppler. Transvaginal imaging is performed due to inadequate visualization transabdominally. FINDINGS: The uterus measures 6.5 x 2.7 x 4.0 cm. No discrete fibroids appreciated. IUD in place within the endometrial cavity and obscures visualization of the endometrium. No significant free fluid. Left ovary not visualized. Limited visualization due to bowel gas.. Right ovary measures 2.2 x 2.7 x 1.7 cm, volume 5.1 mL. Right ovarian 0.7 x 0.8 x 0.6 cm cyst is likely simple, but visualization is somewhat limited due to bowel gas. A 0.7 x 0.6 x 0.6 cm cyst present within the lower uterine segment. US/US pelvic and transvaginal IMPRESSION: 1. IUD in place within the endometrial cavity and obscures visualization of the endometrium. 2. Right ovarian 0.8 cm cyst is likely simple, but visualization is somewhat limited due to bowel gas. 3. Left ovary not visualized. 4. A 0.7 cm cyst present within the lower uterine segment.
== END 2023-08-29 12:37 | disposition home or self-care (01) ==
LOC: HO.HMGCX 12:36
PROVIDERS: PCP Internal Medicine; Visit Provider Obstetrics & Gynecology
DX: N95.0 Postmenopausal bleeding (principal)
CPT/HCPCS: 76830; 76856

== ENCOUNTER 2023-09-27 09:05 | Outpatient (AMB) | payer OTHER, SELFPAY ==
[2023-09-27 09:12] VITALS: BP 118/68; PULSE 65; O2SAT 95; BMI 24.2
--- NOTE | 2023-09-27 09:12 | MHC.PC.OV ---
Vital Signs 09/27/23 09:12 Height 5 ft 6 in Weight 150 lb BMI 24.2 BP 118/68 Blood Pressure Location Lt brachial Position Sitting Pulse 65 Pulse Source Pulse Oximeter Pulse Oximetry (%) 95 Oxygen Delivery Method Room Air Intake Visit Reasons: PE Allergies No Known Allergies [No Known Allergies*] Allergy (Verified 09/27/23 09:13) Medication List - Last Reconciled 09/27/23 by Nita Reed MD cholecalciferol (vitamin D3) 25 mcg PO DAILY citalopram 10 mg PO DAILY copper (ParaGard T 380A) intrauterine cyanocobalamin (vitamin B-12) 1,000 mcg PO DAILY folic acid 0.8 mg PO DAILY lorazepam 0.5 mg PO DAILY PRN 30 days sumatriptan succinate (Imitrex) 50 mg PO Q2-4H PRN Tobacco use date assessed: 09/27/23 Dental Screening Dental Screen Date: 09/27/23 Did you have a dental visit in the last 12 months?: Yes Did you have a dental problem in the last 6 months where you did not have access to dental care?: No Was dental information given to patient?: Patient has dentist HPI PE HPI Details 47-year-old female smoker with a history of cervical degenerative disc disease GERD hypercholesterolemia impaired glucose tolerance generalized anxiety disorder and radicular pain and left arm coming in for physical exam last seen in December 2022. Mammogram is up-to-date [facility] Medical History Well woman exam with routine gynecological exam Breast cancer screening Colon cancer screening Annual physical exam Acute bronchitis At high risk for breast cancer Well woman exam Arm numbness left Shingles Rash and nonspecific skin eruption Atypical squamous cells cannot exclude high grade squamous intraepithelial lesion on cytologic smear of cervix (ASC-H) Tobacco abuse Insomnia Hypercholesterolemia Migraine GERD (gastroesophageal reflux disease) Surgical History ELIF I (cervical intraepithelial neoplasia I) History of breast biopsy Family History Father Heart disease Bone cancer Diabetes Esophageal cancer Mother No problems noted. Maternal Grandmother Colon cancer Paternal Aunt Breast cancer, Onset Age: 75 Sister Breast cancer, Onset Age: 42 Social History (Updated 09/27/23 @ 09:48 by Nita Reed MD) Housing: House Alcohol intake: current Alcohol intake frequency: a few times a month Alcohol type: beer, wine and hard liquor Comment: 2x a week 2-3 drinks Patient Tobacco Use Status: Current everyday Tobacco user Tobacco use type: Cigarette Cigarettes Per Day: 5 Years Smoked: started 17 years old e-Cigarette/Vaping Use: Never Used Second Hand Smoke Exposure: No service: No Current occupational status: employed Cognitive needs: No Hearing needs: No Vision needs: No Female Reproductive History Menstrual Age of Menarche: 13 Questionnaire PHQ-9 Over the last 2 weeks, how often have you been bothered by any of the following problems? 1. Little interest or pleasure in doing things: not at all 2. Feeling down, depressed, or hopeless: not at all 3. Trouble falling or staying asleep, or sleeping too much: not at all 4. Feeling tired or having little energy: not at all 5. Poor appetite or overeating: not at all 6. Feeling bad about yourself - or that you are a failure or have let yourself or your family down: not at all 7. Trouble concentrating on things, such as reading the newspaper or watching television: not at all 8. Moving or speaking so slowly that other people could have noticed. Or the opposite - being so fidgety or restless that you have been moving around a lot more than usual: not at all 9. Thoughts that you would be better off or of hurting yourself in some way: not at all Total score: 0 Depression Screening Interpretation: Negative Depression Screening Done: Yes Source: Developed by Drs. Gatito Meza, Ca Anders, Bobby Chaparro and colleagues, with an educational agnieszka from [employer]. Thrive Questionnaire Date Thrive assessed: 09/27/23 I am a: Patient What is your living situation today?: I have a steady place to live Within the past 12 months, did the food you bought not last and you didn't have the money to get more?: Never true Within the past 12 months, did you worry whether your food would run out before you got money to buy more?: Never true Do you have trouble paying for medicines?: No Do you have trouble getting transportation to medical appointments?: No Do you have trouble paying your heating and electricity bill?: No Do you have trouble taking care of your child, family member or friend?: No Do you have trouble with day-to-day activities such as bathing, preparing meals, shopping, managing finances, etc.?: No Are you currently unemployed and looking for a job?: No Are you interested in more education?: No Currently or been in a relationship where the following occur: no concerns reported THRIVE Score: 0 AUDIT C Alcohol Use Questionnaire (AUDIT-C) 1. How often do you have a drink containing alcohol?: Never Total Score: 0 SACHI-7 AMB Questionnaire SACHI-7 Date SACHI - 7 assessed: 09/27/23 Feeling nervous, anxious, or on edge: 0 = Not at all Not being able to stop or control worryin = Not at all Worrying too much about different things: 0 = Not at all Trouble relaxin = Not at all Being so restless that it is hard to sit still: 0 = Not at all Becoming easily annoyed or irritable: 0 = Not at all Feeling afraid as if something awful might happen: 0 = Not at all Total SACHI-7 score (0-4 normal; 5-9 mild; 10-14 moderate; 15-21 severe): 0 Source: Developed by Drs. Gatito Meza, Ca Anders, Bobby Chaparro and colleagues, with an educational agnieszka from [employer]. Review of Systems Const Denies poor appetite and Denies weakness Eyes Denies no additional complaints ENT Reports Normal hearing present, Denies dizziness, Denies nasal congestion, Denies tinnitus and Denies sore throat Card Denies chest pain, Denies syncope, Denies rapid heart rate and Denies dyspnea Resp Denies cough and Denies dyspnea GI Denies change in stool character, Reports constipation, Denies diarrhea, Denies nausea and Denies vomiting Denies urinary frequency, Denies difficulty voiding and Denies dysuria Neuro Reports Normal hearing present, Denies confusion, Denies dizziness, Denies syncope and Denies weakness Psych Denies confusion Physical exam (Primary Care) Vital Signs: Last Vital Signs Pulse 65 09/27/23 09:12 BP 118/68 09/27/23 09:12 Pulse Ox 95 09/27/23 09:12 Oxygen Delivery Method Room Air 09/27/23 09:12 BMI result Body Mass Index 24.2 Tobacco/Smoking Status: Tobacco use Status Tobacco use date assessed 09/27/23 09/27/23 09:15 Patient Tobacco Use Status Current everyday Tobacco 09/27/23 09:15 Tobacco use type Cigarette 09/27/23 09:15 e-Cigarette/Vaping Use Never Used 09/27/23 09:15 PHQ-9: PHQ-9 Score PHQ-9: Total score 0 09/27/23 09:31 Depression Screening Interpretation: Negative Thrive Assessment: Date of Thrive Assessment Date Thrive assessed 09/27/23 09/27/23 09:15 Currently or been in a relationship where the following occur: no concerns reported Const General: No confusion Orientation/consciousness: No confusion HENMT Head: Yes normocephalic Ears: external ears normal and TM's normal bilaterally Face and sinus: Yes normal facial exam Mouth: moist mucous membranes Throat: Yes tonsils normal Eyes Conjunctivae: conjunctivae normal Pupils: Equal, round and reactive pupils present and Pupil accommodation reflex normal Direct Ophthalmoscopy: normal light reflex Neck Neck: No lymphadenopathy Thyroid: Thyroid normal Chest Chest palpation & inspection: normal inspection of the chest Resp Effort & Inspection: normal respiratory effort and no audible wheezes Auscultation: clear to auscultation bilaterally, no crackles, no wheezes and lung sounds not diminished Cardio Rate: regular rate Rhythm: regular rhythm Peripheral pulses: radial pulses present and dorsalis pedis present GI Palpation (GI): no masses Auscultation: normal bowel sounds and normoactive bowel sounds Rectal Exam - Female: deferred Skin General skin exam: no rashes or lesions noted Rashes: no rashes Neuro General: No confusion Cranial nerves: Yes Equal, round and reactive pupils present and Yes Normal hearing present Cognition (Neuro): normal cognition Gait exam (Neuro): Normal gait present Motor exam (neuro): 5/5 motor strength present throughout Deep tendon reflexes (DTR's): Right brachioradialis reflex intensity grade: 2+, Left brachioradialis reflex intensity grade: 2+, Right patellar reflex intensity grade: 2+ and Left patellar reflex intensity grade: 2+ Extrem General: No edema Assessment and Plan Assessment & Plan (1) Annual physical exam: Code(s): Z00.00 - Encounter for general adult medical examination without abnormal findings (2) Tobacco abuse: Code(s): Z72.0 - Tobacco use Plan: Strongly advised to stop! (3) Hypercholesterolemia: Code(s): E78.00 - Pure hypercholesterolemia, unspecified Plan: Avoid fried foods, chicken skin, eggs, butter margarine, pastries and meat. Be it pork or beef they have a lot of cholesterol LDL goal of less than 130 and triglyceride of less than 150 (4) Impaired glucose tolerance: Code(s): R73.02 - Impaired glucose tolerance (oral) Plan: Decrease the amount of carbohydrate intake, pasta, bread, rice and potatoes are all sugar and that is aside from all the sweet stuff, remember that fruits are good but they are Sweet also. (5) Generalized anxiety disorder: Comment: Decline any referral for counseling February 2022 Code(s): F41.1 - Generalized anxiety disorder Plan: Continue with present medication (6) Acute eczema: Code(s): L30.9 - Dermatitis, unspecified Orders: Orders Vitamin D 25-OH Total Today R73.02 - Impaired glucose tolerance (oral) Hemoglobin A1c Today R73.02 - Impaired glucose tolerance (oral) Comprehensive Met. Panel Today R73.02 - Impaired glucose tolerance (oral) Lipid Panel Today E78.00 - Pure hypercholesterolemia, unspecified, R73.02 - Impaired glucose tolerance (oral) Thyroid Stimulating Hormone Today R73.02 - Impaired glucose tolerance (oral) Free T4 (Free Thyroxine) Today R73.02 - Impaired glucose tolerance (oral) Vitamin B12 and Folate Today R73.02 - Impaired glucose tolerance (oral) Complete Blood Count Auto Diff Today R73.02 - Impaired glucose tolerance (oral) Medications: New triamcinolone acetonide 0.5% 1 appl topical BID 30 grams 1RF L30.9 - Dermatitis, unspecified Coding Level of Care Code Est Pt Prev Care 40-64y(75482) Diagnoses Annual physical exam Z00.00 Tobacco abuse Z72.0 Hypercholesterolemia E78.00 Impaired glucose tolerance R73.02 Generalized anxiety disorder F41.1 Acute eczema L30.9
== END 2023-09-27 10:01 | disposition home or self-care (01) ==
PROVIDERS: Visit Provider Internal Medicine
DX: Z00.00 Encounter for general adult medical examination without abnormal findings (principal); Z72.0 Tobacco use; E78.00 Pure hypercholesterolemia, unspecified; R73.02 Impaired glucose tolerance (oral); F41.1 Generalized anxiety disorder; L30.9 Dermatitis, unspecified
CPT/HCPCS: 99396

== ENCOUNTER 2023-11-13 07:48 | Outpatient (REF) | payer OTHER, SELFPAY | END 2023-11-13 07:49 | disposition home or self-care (01) | LOC: HO.LNP 07:48 | PROVIDERS: PCP Internal Medicine; Visit Provider Obstetrics & Gynecology | DX: N95.0 Postmenopausal bleeding (principal) | CPT/HCPCS: 58100; 58301; 81025; 88305 ==

== ENCOUNTER 2023-11-13 07:48 | Outpatient (AMB) | payer OTHER, SELFPAY ==
--- NOTE | 2023-11-13 07:49 | A.OFFVIS_ITS ---
Vital Signs 11/13/23 07:57 BP 120/82 Intake Visit Reasons: Ultrasound results/? Biopsy/DO NOT RS Machine Lead Burner: Machine Lead Burner Present (Marilee) Allergies No Known Allergies [No Known Allergies*] Allergy (Verified 11/13/23 07:57) Is last menstrual period known: Yes Last menstrual period: 09/22/23 Post menopausal: No Patient : No Do you need a note to return to daycare/school/sports/work: Yes (for surgery on monday) HPI Comments Details: Presenting for EMB in requesting ParaGard IUD removal, the patient had ParaGard IUD was inserted in 06/2016, around 7.5 years ago and her current partner has a vasectomy, she would like to have her ParaGard IUD taken out [facility] Medical History Well woman exam with routine gynecological exam Breast cancer screening Colon cancer screening Annual physical exam Acute bronchitis At high risk for breast cancer Well woman exam Arm numbness left Shingles Rash and nonspecific skin eruption Atypical squamous cells cannot exclude high grade squamous intraepithelial lesion on cytologic smear of cervix (ASC-H) Tobacco abuse Insomnia Hypercholesterolemia Migraine GERD (gastroesophageal reflux disease) Surgical History ELIF I (cervical intraepithelial neoplasia I) History of breast biopsy Family History Father Heart disease Bone cancer Diabetes Esophageal cancer Mother No problems noted. Maternal Grandmother Colon cancer Paternal Aunt Breast cancer, Onset Age: 75 Sister Breast cancer, Onset Age: 42 Social History Housing: House Alcohol intake: current Alcohol intake frequency: does not drink Alcohol type: beer, wine and hard liquor Comment: 2x a week 2-3 drinks Patient Tobacco Use Status: Current everyday Tobacco user Tobacco use type: Cigarette Cigarettes Per Day: 5 Years Smoked: started 17 years old e-Cigarette/Vaping Use: Never Used Second Hand Smoke Exposure: No Use of substances other than those prescribed or required for medical reasons: No Are you DNR?: No Advance Directives: No Advance Directives Information Provided: Yes Advance Directives on File: No Patient : No service: No Current occupational status: employed Cognitive needs: No Hearing needs: No Vision needs: No Female Reproductive History Menstrual Age of Menarche: 13 Date of last menstrual period: 09/22/23 Total pregnancies: 2 Full term: 2 Review of Systems Const All systems reviewed & are unremarkable except as noted in HPI and below Card Reports as per HPI and Reports no additional complaints Resp Reports as per HPI and Reports no additional complaints GI Reports as per HPI and Reports no additional complaints Reports as per HPI Physical Exam Vital Signs: Last Vital Signs BP 120/82 11/13/23 07:57 Const General: cooperative, healthy appearing and comfortable Resp Effort & Inspection: normal respiratory effort Auscultation: clear to auscultation bilaterally Percussion: percussion normal Cardio Palpation: normal PMI Rate: regular rate Rhythm: regular rhythm Heart sounds: no murmurs and no rubs Peripheral pulses: Peripheral pulses 2+ throughout GI Inspection: Yes normal to inspection Palpation (GI): Soft to palpation, nontender, no guarding, not rigid and No hepatosplenomegaly present Percussion: Yes normal to percussion Auscultation: normal bowel sounds Rectal Exam - Female: deferred General: Yes no CVA tenderness External Female Exam: normal external appearance and normal appearance of the urethra Speculum Exam - Vagina: normal appearance of the vagina, normal palpation, no lesions and no masses Speculum Exam - Cervix: normal appearance of the cervix, normal palpation, no lesions, no masses, nontender and Other cervical findings present (IUD thread in place) Bimanual exam- vagina & uterus: normal bimanual exam, normal palpation, uterine size normal, normal palpation, uterine shape normal, No Cervical tenderness present and non-tender Bimanual Exam- Adnexa, other: normal adnexae Back/Spine/Pelvis Back: no CVA tenderness Office Procedures Endometrial Biopsy Details: After IUD removal, The patient was counseled regarding the indication and benefits of endometrial sampling to rule out endometrial pathology including not limited to endometrial hyperplasia or endometrial cancer and others; The alternatives (Either do nothing vs. hysteroscopy D&C) & the risks were discussed with the patient including but not limited: pain, uterine perforation, bleeding, infection, possible injury to bladder, bowel, ureter, possible need for blood t ransfusion with all its possible risks. The patient verbalized understanding all questions answered and signed consent. The patient was placed into the dorsal lithotomy position; a speculum was inse rted in the vagina. Using aseptic technique for the procedure, the cervix was cleansed with Betadine. The anterior lip of the cervix was grasped with a single tooth tenaculum. The uterus was sounded to 7 cm with a 4 mm Pipelle was used. Tissues samples were obtained and placed in formalin, in a patient labeled container and sent to the pathology department. At the end of the procedure, there was minimal bleeding noted The patient tolerated the procedure well and was discharged in good condition with the following instructions: Nothing in the vagina until the bleeding stops. No sex until the bleeding stops, to call if any of the following occurs: fever (>100.4), flu-like symptoms, abdominal pain, heavy bleeding, four smelling vaginal discharge. The patient was instructed to schedule a Follow up appointment in 2 weeks to discuss pathology results of the biopsy and treatment options. This note was generated with a voice recognition program. Some errors may have been overlooked during the review of this note. Sometimes these errors may affect the content or meaning of a given sentence. 11345-Bafcxebevhi Biopsy IUD Insert/Removal Details Details: Counseling/Consent: After discussing with the patient the risks of the procedure including bleeding, infection, scar tissue formation, , possible IUD breakdown retention inside the uterus, possible need for hysteroscopic removal of the IUD device partially or completely, possible injury to blood vessels or nerves, chronic arm pain, blood transfusion, and irregular unpredictable bleeding Alternative options were discussed with the patient including but not limited: Do nothing. The patient signed the consent and agreed with the plan; all questions answered. Urine test was done in the office and was negative Preop dx: Requesting IUD removal Op: Paraguard IUD removal Post op dx: Removed IUD with missing left arm, retained in utero EBL= 2 cc Procedure: The patient was put in the dorsal lithotomy position a speculum was inserted in the vagina the IUD thread identified. Using a Lyly clamp the thread was grasped and with minimal traction the IUD was pulled out without any resistance. The ParaGard IUD came out missing the left arm. The patient tolerated the procedure well and was advised to use a different method for contraception. Discussed with the patient the finding and the missing left arm of ParaGard IUD arm retained in utero; Recommended hysteroscopic IUD arm removal lizy Next EMB was done, see procedure note Discharge instructions: Instructions were given to the pt to call if temp>100.4, abdominal pain heavy vaginal bleeding, n/v occur. The patient verbalized understanding and all questions answered. This note was generated with a voice recognition program. Some errors may have been overlooked during the review of this note. Sometimes these errors may affect the content or meaning of a given sentence. 56257-QCS Removal Procedure code (CPT) selection complete Results AMB Test Urine AMB Test Urine Negative Last Edit by TRENT Broussard on 11/13/23 08:00 Results Reviewed Results Reviewed: Laboratory Last Values Tst Clinic Negative 11/13/23 07:59 Assessment & Plan Assessment & Plan (1) Encounter for IUD removal: Comment: Missing right IUD arm, retained in utero Code(s): Z30.432 - Encounter for removal of intrauterine contraceptive device Category: Medical Plan: IUD removal done, see procedure note, ParaGard came out with missing the right IUD arm , retained in utero. (2) Postmenopausal bleeding: Code(s): N95.0 - Postmenopausal bleeding Category: Medical Plan: EMB done, see procedure note (3) IUD mechanical complication: Comment: Retained right IUD arm in utero Code(s): T83.39XA - Other mechanical complication of intrauterine contraceptive device, initial encounter Category: Medical Plan: Discussed with the patient that ParaGard IUD came out missing the right IUD arm, retained in utero, recommended hysteroscopic removal of the retained IUD arm Will proceed with hysteroscopy IUD arm removal. Discussed with the patient the procedure , all benefits and risks including but not limited to inability to complete the procedure , insufficient endometrial tissue for a complete evaluation of the endometrial cavity , bleeding, infection, possible need for blood transfusion with all its risk ( HIV,syphilis, Hepatitis, anaphylaxis shock, others..), injury to bladder, rectum, possible need for laparosco py/laparotomy or hysterectomy. The patient verbalized understanding and signed the consent. Instructions given the patient to schedule a 2 week postoperative appointment Orders: Orders AMB HCG Urine Test 11/13/23 Z32.02 - Encounter for test, result negative AMB Endometrial Biopsy 11/13/23 N95.0 - Postmenopausal bleeding Surgical 11/13/23 N95.0 - Postmenopausal bleeding Coding Level of Care Code Est Pt Level 3 (86995) Diagnoses Encounter for IUD removal Z30.432 Postmenopausal bleeding N95.0 IUD mechanical complication T83.39XA CPT Codes Endometrial Biopsy - CPT: 72006-Iccscxgenun Biopsy ([id number]) Details - CPT: 57940-UYE Removal ([id number])
[2023-11-13 07:57] VITALS: BP 120/82
== END 2023-11-13 08:34 | disposition home or self-care (01) ==
PROVIDERS: PCP Internal Medicine; Visit Provider Obstetrics & Gynecology
DX: N95.0 Postmenopausal bleeding (principal); T83.39XA Other mechanical complication of intrauterine contraceptive device, initial encounter; Z30.432 Encounter for removal of intrauterine contraceptive device; Z32.02 Encounter for pregnancy test, result negative
CPT/HCPCS: 58100; 58301; 99213

== ENCOUNTER 2023-11-15 07:48 | Day surgery (SDC) | payer OTHER, SELFPAY ==
--- NOTE | 2023-11-13 14:13 | HO.ANESPROP2 ---
HPI - Anesthesia Eval Consult details Narrative: 48yo F for Hysteroscopy IUD Removal PMFSH Active Problems Active Problems: All Active Problems IUD mechanical complication (Acute) Encounter for IUD removal (Acute) Acute eczema (Acute) Postmenopausal bleeding (Acute) Cloudy urine (Acute) Dysuria (Acute) Degenerative cervical disc (Acute) Annual physical exam (Acute) Radicular pain in left arm (Acute) Numbness and tingling in left hand (Acute) IUD (intrauterine device) in place (Acute) ELIF I (cervical intraepithelial neoplasia I) (Acute) Macrocytosis (Acute) Syncope (Acute) Generalized anxiety disorder (Acute) Abnormal MRI, breast (Acute) Impaired glucose tolerance (Acute) Tobacco abuse (Acute) Hypercholesterolemia (Acute) GERD (gastroesophageal reflux disease) (Acute) Breast calcification, left (Acute) Past Medical History Medical History Well woman exam with routine gynecological exam Breast cancer screening Colon cancer screening Annual physical exam Acute bronchitis At high risk for breast cancer Well woman exam Arm numbness left Shingles Rash and nonspecific skin eruption Atypical squamous cells cannot exclude high grade squamous intraepithelial lesion on cytologic smear of cervix (ASC-H) Tobacco abuse Insomnia Hypercholesterolemia Migraine GERD (gastroesophageal reflux disease) Family History Family History Father Heart disease Bone cancer Diabetes Esophageal cancer Mother No problems noted. Maternal Grandmother Colon cancer Paternal Aunt Breast cancer, Onset Age: 75 Sister Breast cancer, Onset Age: 42 Surgical History Surgical History ELIF I (cervical intraepithelial neoplasia I) History of breast biopsy Social History Social History Housing: House Alcohol intake: current Alcohol intake frequency: does not drink Alcohol type: beer, wine and hard liquor Comment: 2x a week 2-3 drinks Patient Tobacco Use Status: Current everyday Tobacco user Tobacco use type: Cigarette Cigarettes Per Day: 5 Years Smoked: started 17 years old e-Cigarette/Vaping Use: Never Used Second Hand Smoke Exposure: No service: No Current occupational status: employed Cognitive needs: No Hearing needs: No Vision needs: No Meds Allergies Allergy/AdvReac Type Severity Reaction Status Date / Time No Known Allergies Allergy Verified 11/13/23 07:57 [No Known Allergies*] Home Medications ?Medication ?Instructions ?Recorded ?Confirmed ?Last Taken ?Type cyanocobalamin (vitamin B-12) 1,000 mcg PO DAILY 09/11/20 11/15/23 Unknown History 1,000 mcg tablet folic acid 800 mcg tablet 0.8 mg PO DAILY 09/11/20 11/15/23 Unknown History sumatriptan succinate 50 mg tablet 50 mg PO Q2-4H PRN Headache 09/11/20 11/15/23 Unknown History (Imitrex) copper 380 square mm intrauterine intrauterine 04/01/21 09/27/23 Unknown History device (ParaGard T 380A) cholecalciferol (vitamin D3) 25 25 mcg PO DAILY 09/14/21 11/15/23 Unknown History mcg (1,000 unit) capsule Assessment and Plan Assessment Anesthesia Assessment: Chart Reviewed
[2023-11-15 10:07] VITALS: BMI 24.2
[2023-11-15 10:16] VITALS: BP 146/89; PULSE 52; RESP 16; TEMP 36.4; O2SAT 99
--- NOTE | 2023-11-15 10:22 | HO.ANESPROP2 ---
[facility] Active Problems Active Problems: All Active Problems IUD mechanical complication (Acute) Encounter for IUD removal (Acute) Acute eczema (Acute) Postmenopausal bleeding (Acute) Cloudy urine (Acute) Dysuria (Acute) Degenerative cervical disc (Acute) Annual physical exam (Acute) Radicular pain in left arm (Acute) Numbness and tingling in left hand (Acute) IUD (intrauterine device) in place (Acute) ELIF I (cervical intraepithelial neoplasia I) (Acute) Macrocytosis (Acute) Syncope (Acute) Generalized anxiety disorder (Acute) Abnormal MRI, breast (Acute) Impaired glucose tolerance (Acute) Tobacco abuse (Acute) Hypercholesterolemia (Acute) GERD (gastroesophageal reflux disease) (Acute) Breast calcification, left (Acute) Past Medical History Medical History Well woman exam with routine gynecological exam Breast cancer screening Colon cancer screening Annual physical exam Acute bronchitis At high risk for breast cancer Well woman exam Arm numbness left Shingles Rash and nonspecific skin eruption Atypical squamous cells cannot exclude high grade squamous intraepithelial lesion on cytologic smear of cervix (ASC-H) Tobacco abuse Insomnia Hypercholesterolemia Migraine GERD (gastroesophageal reflux disease) Functional capacity: independent ambulation Patient : No Family History Family History Father Heart disease Bone cancer Diabetes Esophageal cancer Mother No problems noted. Maternal Grandmother Colon cancer Paternal Aunt Breast cancer, Onset Age: 75 Sister Breast cancer, Onset Age: 42 Family history of problems with anesthesia: No Surgical History Surgical History ELIF I (cervical intraepithelial neoplasia I) History of breast biopsy History of Problems with Anesthesia: No Social History Social History Housing: House Alcohol intake: current Alcohol intake frequency: does not drink Alcohol type: beer, wine and hard liquor Comment: 2x a week 2-3 drinks Patient Tobacco Use Status: Current everyday Tobacco user Tobacco use type: Cigarette Cigarettes Per Day: 5 Years Smoked: started 17 years old e-Cigarette/Vaping Use: Never Used Second Hand Smoke Exposure: No Use of substances other than those prescribed or required for medical reasons: No Are you DNR?: No Advance Directives: No Advance Directives Information Provided: Yes Advance Directives on File: No service: No Current occupational status: employed Cognitive needs: No Hearing needs: No Vision needs: No Meds Allergies Allergy/AdvReac Type Severity Reaction Status Date / Time No Known Allergies Allergy Verified 11/13/23 07:57 [No Known Allergies*] Active Medications: Current Medications Albuterol Sulfate (Albuterol Sulfate (0.083%) 2.5 Mg/3 Ml Vial.Neb) 2.5 mg INHALE ONCE PRN PRN Reason: Shortness of Breath/Wheezing Lactated Ringer's (Lr) 1,000 mls @ 100 mls/hr IVCONT .Q10H SONIA Home Medications ?Medication ?Instructions ?Recorded ?Confirmed ?Last Taken ?Type cyanocobalamin (vitamin B-12) 1,000 mcg PO DAILY 09/11/20 11/15/23 Unknown History 1,000 mcg tablet folic acid 800 mcg tablet 0.8 mg PO DAILY 09/11/20 11/15/23 Unknown History sumatriptan succinate 50 mg tablet 50 mg PO Q2-4H PRN Headache 09/11/20 11/15/23 Unknown History (Imitrex) copper 380 square mm intrauterine intrauterine 04/01/21 09/27/23 Unknown History device (ParaGard T 380A) cholecalciferol (vitamin D3) 25 25 mcg PO DAILY 09/14/21 11/15/23 Unknown History mcg (1,000 unit) capsule Exam Height,Weight and Vital Signs: Height 5 ft 6 in Weight 68.096 kg Airway Mallampati Class: II TM Dist: >3cm Neck ROM: Full Heart: RRR Lungs: CTA Assessment and Plan Assessment Anesthesia Assessment: Anesthesia Plan Discussed and Smoking Cess. Discussed Final Anesthetic Review Family History of Problems with Anesthesia: No History of Problems with Anesthesia: No NPO: Yes ASA Class: II Final Preanesthetic Review: Meds/Allgs Chart Reviewed, Consent Obtained/Reviewed and Anes Risks/Benef Reviewed Patient Risk: Low Procedure Risk: Low Anesthetic Plan Anesthetic Plan: GA Disposition: Standard PACU
[2023-11-15] MEDS: Lactated Ringers 1,000 ML 100 ML IVCONT (10:27)
--- NOTE | 2023-11-15 12:05 | MHC.SHP ---
Pre-Procedural Eval Section A - 24 Hr Update-Section A only Date of Service: 11/15/23 The patient is an INPATIENT: No Changes since office visit: No Cold of Flu in the past 2 weeks, No New Medical Problems, No Changes in Medication and No Patient answered all questions The patient has been examined within 24 hours of the surgical procedure. The History & Physical has been completed within 30 days and I have reviewed it.: Yes Section B - Complete if H&P > 30 days Chief Complaint: Other mechanical complication of intrauterine cont Allergies: Allergies Allergy/AdvReac Type Severity Reaction Status Date / Time No Known Allergies Allergy Verified 11/13/23 07:57 [No Known Allergies*] Plan Diagnosis/Plan: Unchanged I have reviewed the history and physical and performed a pertinent physical examination on my patient. No changes have occurred unless specified. Time Spent With Patient Time: Total time managing care of this patient today ____ minutes.
[2023-11-15 13:32] VITALS: BP 136/92; PULSE 79; RESP 20; TEMP 37; O2SAT 98
--- NOTE | 2023-11-15 13:34 | PM.OP ---
Brief Operative Note Date of Service: 11/15/23 Pre-op diagnosis: Retained ParaGard IUD arm in utero Post-op diagnosis: same (Right IUD arm with the plastic portion in utero and the remaining portion of the IUD arm with copper embedded and stuck in the endometrium/myometrium) Procedure: Hysteroscopy failed attempt to remove retained ParaGard IUD arm Surgeon: Simba Erwin MD Anesthesia: GLMA Was an Lawn Care Specialist used for this Procedure?: No Estimated blood loss (mL): 0 Pathology: none sent Condition: stable Disposition: PACU
[2023-11-15 13:47] VITALS: BP 145/85; PULSE 55; RESP 16; TEMP 37; O2SAT 98
[2023-11-15 14:02] VITALS: BP 145/83; PULSE 58; RESP 16; TEMP 37; O2SAT 97
--- NOTE | 2023-11-15 14:11 | P.OP_ITS ---
Operative Note Operative Note Date of Service: 11/15/23 Narrative: Preop Diagnosis: Retained right ParaGard IUD arm in utero Operation: Diagnostic Hysteroscopic, failed attempt to remove retained right ParaGard IUD arm in utero Post Op Diagnosis: Same. Retained Right ParaGard IUD arm with the plastic portion inside the uterine cavity and the remaining portion of the retained ParaGard IUD arm with copper embedded and stuck in the endometrium/myometrium QBL: Minimal Anesthesia: LGID Surgeon: Simba Erwin MD Access Service Representative: None Complication: None Pathology: None Procedure: The patient was put in the dorsal lithotomy position, scrubbed, and draped in the usual manner. A sterile speculum was inserted in the patient's vagina. The anterior lip of the cervix was grasped with a single tooth tenaculum. The cervix was dilated up to 5 mm, then the scope was inserted in the patient's uterus. Inspection revealed a retained right ParaGard IUD arm, the white plastic medial portion of the right ParaGard IUD arm is protruding inside the uterine cavity and the lateral portion of the right ParaGard IUD arm with the copper portion is embedded and stuck in the endometrium/myometrium. A hysteroscopic grasper was introduced through the operative channel, the plastic portion of the retained right ParaGard IUD arm that is protruding inside the uterine cavity was grasped and multiple attempts were tried to pull it out to no avail; other attempts were tried to move it medially , cephalad and caudally in an effort to dislodge it , they all failed too. At the end of the procedure, all instruments were taken out of the patient uterine and vaginal cavity. The single tooth tenaculum was removed and homeostasis was assured using pressure. The patient tolerated the procedure well and was transferred to the PACU in a stable condition.
== END 2023-11-15 14:38 | disposition home or self-care (01) ==
PROVIDERS: PCP Internal Medicine; Visit Provider Obstetrics & Gynecology
PROC: 0UJD8ZZ Inspection of Uterus and Cervix, Via Natural or Artificial Opening Endoscopic (ICD-10-PCS; CPT 58555; principal; 2023-11-15 09:40)
DX: T83.32XA Displacement of intrauterine contraceptive device, initial encounter (principal); Y76.2 Prosthetic and other implants, materials and accessory obstetric and gynecological devices associated with adverse incidents; R20.0 Anesthesia of skin; F17.210 Nicotine dependence, cigarettes, uncomplicated
CPT/HCPCS: 58562; 81025; J1100; J1885; J2250; J2405; J2704; J3010

== ENCOUNTER → 2023-11-15 07:48 | Outpatient (BNV) | payer OTHER, SELFPAY | PROVIDERS: PCP Internal Medicine; Visit Provider Obstetrics & Gynecology | DX: T83.39XA Other mechanical complication of intrauterine contraceptive device, initial encounter (principal) | CPT/HCPCS: 58562 ==

== ENCOUNTER 2023-11-29 12:59 | Outpatient (REF) | payer OTHER, SELFPAY ==
--- NOTE | ~2023-11-29 | US_ITS ---
EXAMINATION: US PELVIS CLINICAL INFORMATION: Mechanical complication of intrauterine device; the last menstrual period was on 09/22/2023. COMPARISON: Pelvic ultrasound dated 08/29/2023. TECHNIQUE: Ultrasound of the pelvis is performed using both transabdominal and transvaginal transducers along with Doppler. Transvaginal imaging is performed due to inadequate visualization transabdominally. FINDINGS: Uterus: The uterus is anteverted and anteflexed. The uterus measures 7.5 x 2.7 x 3.8 cm. Nabothian cysts and calcifications are seen within the cervix. The double wall endometrial thickness is 4 mm. Within the distal uterine body towards the endometrial myometrial interface, an approximately 6 mm fragment from the prior intrauterine device is suspected. The uterus is smooth in contour and has normal myometrial echogenicity. No visible fibroid. Adnexa: Both ovaries are visualized. There is normal color flow to the adnexa. There is no ovarian torsion. There is no pelvic ascites or fluid collection. Right ovary measures 2.5 x 1.1 x 1.0 cm, volume 1.4 mL. Left ovary measures 1.6 x 0.7 x 0.9 cm, volume 0.5 mL. US/US pelvic and transvaginal IMPRESSION: 1. Within the distal uterine body towards the endometrial myometrial interface, an approximately 6 mm fragment from the prior intrauterine device is suspected. Gynecology evaluation management is recommended. 2. There are nabothian cysts within the cervix.
== END 2023-11-29 13:00 | disposition home or self-care (01) ==
LOC: HO.US 12:59
PROVIDERS: PCP Internal Medicine; Visit Provider Obstetrics & Gynecology
DX: T83.39XA Other mechanical complication of intrauterine contraceptive device, initial encounter (principal)
CPT/HCPCS: 76830; 76856

== ENCOUNTER 2023-11-30 10:32 | Outpatient (AMB) | payer OTHER, SELFPAY ==
--- NOTE | 2023-11-30 10:56 | MHC.OFFVIS ---
Vital Signs 11/30/23 10:58 BP 122/78 Intake Visit Reasons: post op/ EMB results Allergies No Known Allergies [No Known Allergies*] Allergy (Verified 11/13/23 07:57) HPI Comments Details: Presenting for 2 weeks post failed attempt at hysteroscopic removal of retained IUD arm. Doing well with no complaints, no pelvic pain or bleeding. On 08/29/2023 the patient has an ultrasound which showed an IUD in appropriate position in the endometrial cavity On 11/13/23 the patient had ParaGard IUD removal , the IUD came out missing the right arm On 11/14 the patient had an attempt at hysteroscopic removal of retained IUD arm which failed . Intraoperatively, inspection revealed a retained right ParaGard IUD arm, the white plastic medial portion of the right ParaGard IUD arm was protruding inside the uterine cavity and the lateral portion of the right ParaGard IUD arm with the copper portion is embedded and stuck in the endometrium/myometrium. A hysteroscopic grasper was introduced through the operative channel, the plastic portion of the retained right ParaGard IUD arm that is protruding inside the uterine cavity was grasped and multiple attempts were tried to pull it out to no avail; other attempts were tried to move it medially , cephalad and caudally in an effort to dislodge it , they all failed too Pelvic ultrasound done on 11/29/2023 showed the following: Uterus: The uterus is anteverted and anteflexed. The uterus measures 7.5 x 2.7 x 3.8 cm. Nabothian cysts and calcifications are seen within the cervix. The double wall endometrial thickness is 4 mm. Within the distal uterine body towards the endometrial myometrial interface, an approximately 6 mm fragment from the prior intrauterine device is suspected. The uterus is smooth in contour and has normal myometrial echogenicity. No visible fibroid. Adnexa: Both ovaries are visualized. There is normal color flow to the adnexa. There is no ovarian torsion. There is no pelvic ascites or fluid collection. Right ovary measures 2.5 x 1.1 x 1.0 cm, volume 1.4 mL. Left ovary measures 1.6 x 0.7 x 0.9 cm, volume 0.5 mL. The patient was referred to [facility] OBGYN has an appointment with Dr. Da Silva on 12/19/23 On another note the patient was being worked up for AUB . The following workup was done.: H&H= 13.6/40.6 TSH, free T4, GC and chlamydia were negative. Endometrial biopsy pathology showed the following: -Markedly fragmented benign proliferative endometrium with focal crowded glands, cannot exclude disordered proliferative endometrium; no atypia or carcinoma. -Scant benign endocervical glandular and squamous epithelium Co testing was done was negative. Mammogram was done in 07/08 was BI-RADS 3, recommendation was to repeat in six-months [facility] Medical History Well woman exam with routine gynecological exam Breast cancer screening Colon cancer screening Annual physical exam Acute bronchitis At high risk for breast cancer Well woman exam Arm numbness left Shingles Rash and nonspecific skin eruption Atypical squamous cells cannot exclude high grade squamous intraepithelial lesion on cytologic smear of cervix (ASC-H) Tobacco abuse Insomnia Hypercholesterolemia Migraine GERD (gastroesophageal reflux disease) Surgical History ELIF I (cervical intraepithelial neoplasia I) History of breast biopsy Family History Father Heart disease Bone cancer Diabetes Esophageal cancer Mother No problems noted. Maternal Grandmother Colon cancer Paternal Aunt Breast cancer, Onset Age: 75 Sister Breast cancer, Onset Age: 42 Social History Housing: House Alcohol intake: current Alcohol intake frequency: does not drink Alcohol type: beer, wine and hard liquor Comment: 2x a week 2-3 drinks Patient Tobacco Use Status: Current everyday Tobacco user Tobacco use type: Cigarette Cigarettes Per Day: 5 Years Smoked: started 17 years old e-Cigarette/Vaping Use: Never Used Second Hand Smoke Exposure: No service: No Current occupational status: employed Cognitive needs: No Hearing needs: No Vision needs: No Female Reproductive History Menstrual Age of Menarche: 13 Review of Systems Const All systems reviewed & are unremarkable except as noted in HPI and below Reports as per HPI and Reports no additional complaints GI Reports no additional complaints Reports no additional complaints Assessment & Plan Assessment & Plan (1) IUD mechanical complication: Comment: Retained right IUD arm in utero Code(s): T83.39XA - Other mechanical complication of intrauterine contraceptive device, initial encounter Category: Medical Plan: Discussed with the patient the ultrasound finding showing 6 mm right IUD arm at the endometrium and the myometrial junction, in addition discussed with the patient that there are limited data on the consequences of leaving an IUD fragment in situ, including abnormal bleeding, pain, infertility, and infection. If asymptomatic patients counseled the patient that assisted sequela of leaving an IUD fragment in utero has unknown possible future consequences. If the patient desires removal options for removal of retained fragments include manual vacuum aspiration, an IUD hook, narrow tip forceps, and hysteroscopic-assisted extraction . For myometrial IUD fragments that cannot be easily removed with hysteroscopy, review of the medical literature showed that one author advises leaving the fragment in place as it is unlikely to impact fertility, although the data to inform this approach are limited. The patient has an appointment with Dr. Da Silva on 12/19/[address] [facility]. (2) Abnormal uterine bleeding: Code(s): N93.9 - Abnormal uterine and vaginal bleeding, unspecified Category: Medical Plan: Discussed with the patient the results of the work up done and options of treatment . All pros, cons, risks and benefits if each option was discussed with the patient and the patient decided to defer treatment till the retained IUD arm issue is resolved. Instructions given the patient to schedule a follow-up appointment in the coming few weeks. All questions answered the patient verbalized understanding. Coding Level of Care Code Est Pt Level 3 (58284) Diagnoses IUD mechanical complication T83.39XA Abnormal uterine bleeding N93.9
[2023-11-30 10:58] VITALS: BP 122/78
== END 2023-11-30 11:28 | disposition home or self-care (01) ==
PROVIDERS: PCP Internal Medicine; Visit Provider Obstetrics & Gynecology
DX: T83.39XA Other mechanical complication of intrauterine contraceptive device, initial encounter (principal); N93.9 Abnormal uterine and vaginal bleeding, unspecified
CPT/HCPCS: 99213

== ENCOUNTER → 2023-11-30 10:32 | Outpatient (BNVA) | payer OTHER, SELFPAY | PROVIDERS: PCP Internal Medicine; Visit Provider Obstetrics & Gynecology ==

== ENCOUNTER 2024-01-26 14:50 | Outpatient (REF) | payer OTHER, SELFPAY ==
--- NOTE | ~2024-01-26 | MM_ITS ---
EXAMINATION: MM DIAGNOSTIC DIGITAL BREAST TOMOSYNTHESIS, RIGHT CLINICAL INFORMATION: 6 month follow-up (third) for right breast calcifications, upper, medial aspect, far posterior one third depth. COMPARISON: Multiple prior mammography exams including most recent: 01/05/2023, 07/08/2022 (BI-RADS 3 for right breast), dating back to 2019. TECHNIQUE: Digital breast tomosynthesis is performed in both the craniocaudal and mediolateral oblique views along with computer-aided detection (CAD). Synthesized 2D images are generated from the tomosynthesis. In addition to standard views, 2-D spot magnification right CC and ML views were obtained of the right breast. FINDINGS: The breasts are heterogeneously dense, which may obscure small masses (ACR BI-RADS breast composition Category c). Spot magnification views of the right breast slightly upper slightly inner calcifications, 2 distinct groups, posterior one third, demonstrate no significant change in number, shape, or overall appearance of the 2 abutting groups. These have been stable over 1.5 years and remain probably benign. Six-month interval follow-up right breast magnification views recommended to ensure stability. No new suspicious findings are seen in the right breast. MM/MM tomosynthesis diagnostic RT IMPRESSION: There are no significant changes from prior study. Stable benign appearing calcifications right breast. 6 month interval follow-up diagnostic right mammography recommended when the patient is due for bilateral screening to complete 2-year follow-up and hence benignity. ASSESSMENT: BI-RADS BI-RADS 3 - Probably benign finding(s) - 6 month follow-up suggested RECOMMENDATION: 6 Month F/U Results were provided to the patient at time of visit by the technologist. This patient's information was entered into a reminder system with a target due date for their next mammogram.
== END 2024-01-26 14:51 | disposition home or self-care (01) ==
LOC: HO.MAMMO 14:50
PROVIDERS: PCP Internal Medicine; Visit Provider Internal Medicine
DX: R92.1 Mammographic calcification found on diagnostic imaging of breast (principal)
CPT/HCPCS: 77061; 77065

== ENCOUNTER → 2024-01-26 15:00 | Outpatient (BNV) | payer OTHER, SELFPAY | PROVIDERS: PCP Internal Medicine; Visit Provider Radiology Diagnostic Radiology | DX: R92.1 Mammographic calcification found on diagnostic imaging of breast (principal) | CPT/HCPCS: 77061; 77065 ==

== ENCOUNTER 2024-07-29 08:38 | Outpatient (REF) | payer OTHER, SELFPAY ==
--- NOTE | ~2024-07-29 | MM_ITS ---
EXAMINATION: MM DIAGNOSTIC DIGITAL BREAST TOMOSYNTHESIS, BILATERAL CLINICAL INFORMATION: Two-year follow-up for right breast calcifications. COMPARISON: Mammography: Comparison is made with relevant prior exams. TECHNIQUE: Digital breast mammography with tomosynthesis is performed in both the craniocaudal and mediolateral oblique views along with computer-aided detection (CAD). FINDINGS: The breasts are heterogeneously dense, which may obscure small masses (ACR BI-RADS breast composition Category c). Previously seen calcifications in the upper inner quadrant lower inner quadrant are not significantly changed from prior magnification views dating back for 2 years and therefore benign. There are no significant masses, abnormal calcifications, or other abnormalities. Results are provided to the patient at time of visit by the technologist. MM/MM tomosynthesis diagnostic BI IMPRESSION: No mammographic evidence of malignancy. ASSESSMENT: BI-RADS BI-RADS 2 - Benign Findings RECOMMENDATION: 1 year F/U This patient's information was entered into a reminder system with a target due date for their next mammogram. Electronically signed by: Juhi Barnett DO 07/29/2024 09:31 AM FAUSTINO
== END 2024-07-29 08:39 | disposition home or self-care (01) ==
LOC: HO.MAMMO 08:38
PROVIDERS: PCP Internal Medicine; Visit Provider Internal Medicine
DX: R92.1 Mammographic calcification found on diagnostic imaging of breast (principal)
CPT/HCPCS: 77062; 77066

== ENCOUNTER → 2024-07-29 08:45 | Outpatient (BNV) | payer OTHER, SELFPAY | PROVIDERS: PCP Internal Medicine; Visit Provider Internal Medicine | DX: R92.1 Mammographic calcification found on diagnostic imaging of breast (principal) | CPT/HCPCS: 77062; 77066 ==

== ENCOUNTER 2024-08-09 08:08 | Outpatient (REF) | payer OTHER, SELFPAY ==
[2024-08-09 12:01] LABS: Influenza A PCR NEGATIVE (Negative); Influenza B PCR NEGATIVE (Negative); Resp Syncy Virus RNA Qual PCR NEGATIVE (Negative); SARS COV2 PCR INHOUSE NEGATIVE (Negative)
== END 2024-08-09 08:09 | disposition home or self-care (01) ==
LOC: HO.LAB 08:08
PROVIDERS: PCP Internal Medicine; Visit Provider Physician Assistant
DX: J06.9 Acute upper respiratory infection, unspecified (principal); Z11.52 Encounter for screening for COVID-19; Z13.83 Encounter for screening for respiratory disorder NEC
CPT/HCPCS: 0241U

== ENCOUNTER 2024-08-09 09:02 | Outpatient (REF) | payer OTHER, SELFPAY ==
--- NOTE | ~2024-08-09 | XR_ITS ---
EXAMINATION: XR CHEST CLINICAL INFORMATION: R05.9 - Cough, unspecified COMPARISON: 08/04/2021. TECHNIQUE: 2 views of the chest were obtained. FINDINGS: The cardiac, hilar, and mediastinal contours are normal. Lungs demonstrate a segmental consolidation in the inferior right upper lobe consistent with pneumonia. The left lung is clear. There is no pneumothorax or pleural effusion. There is no focal osseous or soft tissue abnormality. XR/XR chest 2V IMPRESSION: 1. Segmental right upper lobe pneumonia. No effusion. Electronically signed by: Humberto Hollis MD 08/09/2024 09:28 AM EST
== END 2024-08-09 09:03 | disposition home or self-care (01) ==
LOC: HO.HMGCX 09:02
PROVIDERS: PCP Internal Medicine; Visit Provider Physician Assistant
DX: J18.1 Lobar pneumonia, unspecified organism (principal); R05.9 Cough, unspecified
CPT/HCPCS: 71046

== ENCOUNTER → 2024-08-09 09:05 | Outpatient (BNV) | payer OTHER, SELFPAY | PROVIDERS: PCP Internal Medicine; Visit Provider Radiology Diagnostic Radiology | DX: J18.9 Pneumonia, unspecified organism (principal) | CPT/HCPCS: 71046 ==

== ENCOUNTER 2024-08-28 09:49 | Outpatient (REF) | payer OTHER, SELFPAY ==
[2024-09-04 14:56] LABS: HPV Genotype 16 Negative (Negative); HPV Genotype 18 Negative (Negative); HPV High Risk Negative (Negative)
== END 2024-08-28 09:50 | disposition home or self-care (01) ==
LOC: HO.LNP 09:49
PROVIDERS: PCP Internal Medicine; Visit Provider Obstetrics & Gynecology
DX: Z01.419 Encounter for gynecological examination (general) (routine) without abnormal findings (principal)
CPT/HCPCS: 87626; 88175

== ENCOUNTER 2024-08-28 09:49 | Outpatient (AMB) | payer OTHER, SELFPAY ==
--- NOTE | 2024-08-28 09:59 | MHC.OFFVIS ---
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 No complaints. Last Pap/HPV was negative in 09/09 Last Mammogram was BI-RADS 2 in 08/10 No previous screening Colonoscopy [facility] Medical History (Updated 08/28/24 @ 10:06 by Simba Erwin MD) Well woman exam Well woman exam with routine gynecological exam Breast cancer screening Colon cancer screening Annual physical exam Acute bronchitis At high risk for breast cancer Arm numbness left Shingles Rash and nonspecific skin eruption Atypical squamous cells cannot exclude high grade squamous intraepithelial lesion on cytologic smear of cervix (ASC-H) Tobacco abuse Insomnia Hypercholesterolemia Migraine GERD (gastroesophageal reflux disease) Surgical History (Updated 08/28/24 @ 10:06 by Simba Erwin MD) ELIF I (cervical intraepithelial neoplasia I) History of breast biopsy Family History Father Heart disease Bone cancer Diabetes Esophageal cancer Mother No problems noted. Maternal Grandmother Colon cancer Paternal Aunt Breast cancer, Onset Age: 75 Sister Breast cancer, Onset Age: 42 Social History Housing: House Alcohol intake: current Alcohol intake frequency: does not drink Alcohol type: beer, wine and hard liquor Comment: 2x a week 2-3 drinks Patient Tobacco Use Status: Current everyday Tobacco user Tobacco use type: Cigarette Cigarettes Per Day: 5 Years Smoked: started 17 years old e-Cigarette/Vaping Use: Never Used Second Hand Smoke Exposure: No service: No Current occupational status: employed Cognitive needs: No Hearing needs: No Vision needs: No Female Reproductive History Menstrual Age of Menarche: 13 Date of last menstrual period: 04/30/24 Total pregnancies: 1 Ab induced: 1 Date of last pap smear: 08/23/23 (negative pap, negative hpv) Date of Mammogram: 07/29/24 (bi rad 1) Review of Systems Const All systems reviewed & are unremarkable except as noted in HPI and below Card Reports as per HPI Resp Reports as per HPI GI Reports as per HPI and Reports no additional complaints Reports as per HPI Physical Exam Const General: cooperative, healthy appearing and comfortable Chest Chest palpation & inspection: normal inspection of the chest and normal palpation of entire chest wall Breast/axilla inspection: normal inspection of the breasts and normal inspection of the axillae Breast/axilla palpation: normal palpation of the breasts, normal palpation of the axillae and no axillary lymphadenopathy Resp Effort & Inspection: normal respiratory effort Auscultation: clear to auscultation bilaterally Percussion: percussion normal Cardio Palpation: normal PMI Rate: regular rate Rhythm: regular rhythm Heart sounds: no murmurs and no rubs Peripheral pulses: Peripheral pulses 2+ throughout GI Inspection: Yes normal to inspection Palpation (GI): Soft to palpation, nontender, no guarding, not rigid and No hepatosplenomegaly present Percussion: Yes normal to percussion Auscultation: normal bowel sounds Rectal Exam - Female: deferred General: Yes bladder normal to palpation External Female Exam: No lesion Speculum Exam - Vagina: normal appearance of the vagina, normal palpation, normal vaginal discharge and not erythematous Speculum Exam - Cervix: normal appearance of the cervix and normal palpation Bimanual exam- vagina & uterus: normal bimanual exam, normal palpation, uterine size normal, bladder normal to palpation, consistency normal and normal palpation Bimanual Exam- Adnexa, other: normal adnexae, no masses and no tenderness Assessment & Plan Assessment & Plan (1) Well woman exam: Comment: Pap negative/HPV positive in 11/06 09/09 co testing negative Code(s): Z01.419 - Encounter for gynecological examination (general) (routine) without abnormal findings Category: Medical Plan: Cotesting done. Instructions given the patient to schedule her next screening Mammogram in 08/11. Counseled the patient about the recommended dietary allowance of 1000 mg of Calcium & 600 IU of vitamin D. GI referral for screening colonoscopy placed The patient was instructed to perform monthly self-breast exams and to schedule an annual exam in a year; All questions answered and the patient verbalized understanding. Instructed the patient to schedule annual exam in a year Orders: Referrals Gastroenterology Referral Z12.11 - Encounter for screening for malignant neoplasm of colon Coding Level of Care Code Est Pt Prev Care 40-64y(03870) Diagnoses Well woman exam Z01.419
[2024-08-28 10:03] VITALS: BP 122/74; BMI 24.0
== END 2024-08-28 10:30 | disposition home or self-care (01) ==
PROVIDERS: PCP Internal Medicine; Visit Provider Obstetrics & Gynecology
DX: Z01.419 Encounter for gynecological examination (general) (routine) without abnormal findings (principal)
CPT/HCPCS: 99396; 99459

== ENCOUNTER 2024-09-30 12:10 | Outpatient (AMB) | payer OTHER, SELFPAY ==
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
[2024-09-30 12:35] VITALS: BP 124/82; PULSE 74; TEMP 36.6; O2SAT 96; BMI 24.1
== END 2024-09-30 12:57 | disposition home or self-care (01) ==
LOC: HO.HMCH 12:11
PROVIDERS: PCP Internal Medicine; Visit Provider Internal Medicine
DX: Z00.00 Encounter for general adult medical examination without abnormal findings (principal); D75.89 Other specified diseases of blood and blood-forming organs; Z72.0 Tobacco use; E78.00 Pure hypercholesterolemia, unspecified; K21.9 Gastro-esophageal reflux disease without esophagitis; F41.1 Generalized anxiety disorder

== ENCOUNTER → 2024-09-30 12:10 | Outpatient (BNVA) | payer OTHER, SELFPAY | PROVIDERS: PCP Internal Medicine; Visit Provider Internal Medicine | DX: Z00.00 Encounter for general adult medical examination without abnormal findings (principal); D75.89 Other specified diseases of blood and blood-forming organs; E78.00 Pure hypercholesterolemia, unspecified; K21.9 Gastro-esophageal reflux disease without esophagitis; F41.1 Generalized anxiety disorder; Z72.0 Tobacco use | CPT/HCPCS: 96127 ==